=== PATIENT | male | born 1970 | race Caucasian/White ===

== ENCOUNTER 2023-09-11 14:28 | Emergency (ER) | payer SELFPAY ==
[2023-09-11] MEDS ORDERED: NA CHLORIDE 0.9% 1,000 ML ONE (14:48)
[2023-09-11] MEDS ORDERED: TETRACAINE HCL 0.5% 4ML OPTH ONE (14:48)
--- NOTE | 2023-09-11 15:24 | ER ---
Nurse's Notes [facility] Name: Harpreet Mckeon Age: 53 yrs Sex: Male : 1970 Arrival Date: 09/11/2023 Time: 14:28 Bed 10 Private MD: Diagnosis: Injury of conjunctiva and corneal abrasion without foreign body, right eye Presentation: 09/10 14:36 Chief complaint: Patient states: R EYE TEARING/IRRITATION x1 WK, UNK SOURCE. bp Coronavirus screen: At this time, the client does not indicate any symptoms associated with coronavirus-19. Ebola Screen: No symptoms or risks identified at this time. Initial Sepsis Screen: Does the patient meet any 2 criteria? No. Patient's initial sepsis screen is negative. Does the patient have a suspected source of infection? No. Patient's initial sepsis screen is negative. Risk Assessment: Do you want to hurt yourself or someone else? Patient reports no desire to harm self or others. Onset of symptoms is unknown. 14:36 Method Of Arrival: Ambulatory bp 14:36 Acuity: HENRIK 3 bp Triage Assessment: 14:37 General: Appears uncomfortable, Behavior is appropriate for age. Pain: Complains of bp pain in right eye. EENT: Eyes are tearing on right eye Sclera/Cornea are reddened in right eye. Historical: - Allergies: 14:37 No Known Allergies; bp - Home Meds: 14:37 None [Active]; bp - PMHx: 14:37 None; bp - Immunization history:: Adult Immunizations up to date. - Infectious Disease History:: Denies. - Social history:: Smoking status: unknown. Screenin:00 [facility] ED Fall Risk Assessment (Adult) History of falling in the last 3 months, cm10 including since admission No falls in past 3 months (0 pts) Confusion or Disorientation No (0 pts) Intoxicated or Sedated No (0 pts) Impaired Gait No (0 pts) Mobility Assist Device Used No (0 pt) Altered Elimination No (0 pt) Score/Fall Risk Level 0 - 2 = Low Risk Oriented to surroundings, Maintained a safe environment, Hourly rounding (assess needs \T\ fall precautionary measures) done. Abuse screen: Denies threats or abuse. Denies injuries from another. Nutritional screening: No deficits noted. Tuberculosis screening: No symptoms or risk factors identified. Assessment: 15:00 General: Appears in no apparent distress. comfortable, Behavior is calm, cooperative. cm10 Neuro: No deficits noted. Level of Consciousness is awake, alert, obeys commands, Oriented to person, place, time, situation, Appropriate for age. Respiratory: Airway is patent Respiratory effort is even, unlabored, Respiratory pattern is regular, symmetrical. EENT: Eyes are tearing on right eye Reports pain in right eye. 15:24 General: PT awaiting completion of irrigation for discharge.. cm10 Vital Signs: 14:36 BP 138 / 99; Pulse 79; Resp 16; Temp 98; Pulse Ox 97% ; Weight 58.97 kg; Height 5 ft. 8 bp in. ; 14:36 Body Mass Index 19.77 (58.97 kg, 172.72 cm) bp Visual Acuity: 15:38 Left Eye Visual acuity 20/50, ; Right Eye Visual acuity 20/70, ; Both Eyes Visual cm10 acuity 20/40; Without Lenses; ED Course: 14:31 Patient arrived in ED. mr 14:35 Chris Carpenter MD is Attending Physician. sp3 14:37 Triage completed. bp 14:37 Arm band placed on. bp 14:42 Eva Hankins, ALICIA is Primary Nurse. cm10 14:58 Eye irrigation of right eye w/ Grzegorz lens IV tubing with 1 liter normal saline, cm10 Patient tolerated well. 15:00 Patient has correct armband on for positive identification. Placed in gown. Bed in low cm10 position. Call light in reach. Provided Education on: ER process and procedures. 15:00 No provider procedures requiring assistance completed. Patient did not have IV access cm10 during this emergency room visit. 15:22 Harsh Michelle MD is Referral Physician. sp3 Administered Medications: 14:52 Drug: Tetracaine Ophthalmic Drops 0.5 % 3 drops Ophthalmic once Route: Ophthalmic; cm10 Site: right eye; Medication: 15:00 VIS not applicable for this client. cm10 Outcome: 15:23 Discharge ordered by . sp3 15:42 Discharged to home ambulatory, with significant other, cm10 15:42 Condition: good 15:42 Discharge instructions given to patient, Instructed on discharge instructions, follow up and referral plans. medication usage, Demonstrated understanding of instructions, follow-up care, medications, Prescriptions given X 1, 15:42 Patient left the ED. cm10 Signatures: Elizabeth Baptiste, Reg Reg Rodney Stapleton, ALICIA RN bp Chris Carpenter MD MD sp3 Eva Hankins RN RN cm10
--- NOTE | 2023-09-11 15:24 | EDPHYS ---
Physician Documentation [facility] Name: Harpreet Mckeon Age: 53 yrs Sex: Male : 1970 Arrival Date: 09/11/2023 Time: 14:28 Bed 10 Private MD: ED Physician Chris Carpenter HPI: 09/10 14:52 This 53 yrs old Male presents to ER via Ambulatory with complaints of Eye Problem. sp3 14:52 53-year-old male with no past medical history presents to the ED with right eye sp3 redness, drainage for 6 days. Patient thinks that he "got something in his eye at the right smell" and it has been hurting him since then progressively getting worse. He has foreign body sensation in his eye. He denies headache, cloudy vision, decreased vision, neck pain, other focal neurological deficit, chest pain, back pain, shortness of breath, fever, corrective lenses, or any other signs or symptoms on ROS at this time.. Historical: - Allergies: 14:37 No Known Allergies; bp - Home Meds: 14:37 None [Active]; bp - PMHx: 14:37 None; bp - Immunization history:: Adult Immunizations up to date. - Infectious Disease History:: Denies. - Social history:: Smoking status: unknown. ROS: 14:54 Constitutional: Negative for fever, chills, and weight loss, ENT: Negative for injury, sp3 pain, and discharge, Neck: Negative for injury, pain, and swelling, Cardiovascular: Negative for chest pain, palpitations, and edema, Respiratory: Negative for shortness of breath, cough, wheezing, and pleuritic chest pain, Abdomen/GI: Negative for abdominal pain, nausea, vomiting, diarrhea, and constipation, Back: Negative for injury and pain, MS/Extremity: Negative for injury and deformity, Skin: Negative for injury, rash, and discoloration, Neuro: Negative for headache, weakness, numbness, tingling, and seizure, Psych: Negative for depression, anxiety, suicide ideation, homicidal ideation, and hallucinations, Allergy/Immunology: Negative for hives, rash, and allergies, Endocrine: Negative for neck swelling, polydipsia, polyuria, polyphagia, and marked weight changes, 14:54 All other systems are negative, Exam: 14:55 Constitutional: This is a well developed, well nourished patient who is awake, alert, sp3 and in no acute distress. Head/Face: Normocephalic, atraumatic. ENT: Nares patent. No nasal discharge, no septal abnormalities noted. External auditory canals are clear. Oropharynx with no redness, swelling, or masses, exudates, or evidence of obstruction, uvula midline. Mucous membranes moist. Neck: Trachea midline, no thyromegaly or masses palpated, and no cervical lymphadenopathy. Supple, full range of motion without nuchal rigidity, or vertebral point tenderness. No Meningismus. Chest/axilla: Normal chest wall appearance and motion. Nontender with no deformity. No lesions are appreciated. Cardiovascular: Regular rate and rhythm with a normal S1 and S2. No gallops, murmurs, or rubs. Normal PMI, no JVD. No pulse deficits. Respiratory: Lungs have equal breath sounds bilaterally, clear to auscultation and percussion. No rales, rhonchi or wheezes noted. No increased work of breathing, no retractions or nasal flaring. Abdomen/GI: Soft, non-tender, with normal bowel sounds. No distension or tympany. No guarding or rebound. No evidence of tenderness throughout. Back: No spinal tenderness. No costovertebral tenderness. Full range of motion. Skin: Warm, dry with normal turgor. Normal color with no rashes, no lesions, and no evidence of cellulitis. MS/ Extremity: Pulses equal, no cyanosis. Neurovascular intact. Full, normal range of motion. Neuro: Awake and alert, GCS 15, oriented to person, place, time, and situation. Cranial nerves II-XII grossly intact. Motor strength 5/5 in all extremities. Sensory grossly intact. Cerebellar exam normal. Normal gait. 14:55 Eyes: Right eye erythematous with tearing. Anterior chamber clear. Pupils 3 mm and reactive to light. Extraocular movements are intact. Visual acuity pending.. Vital Signs: 14:36 BP 138 / 99; Pulse 79; Resp 16; Temp 98; Pulse Ox 97% ; Weight 58.97 kg; Height 5 ft. 8 bp in. ; 14:36 Body Mass Index 19.77 (58.97 kg, 172.72 cm) bp Visual Acuity: 15:38 Left Eye Visual acuity 20/50, ; Right Eye Visual acuity 20/70, ; Both Eyes Visual cm10 acuity 20/40; Without Lenses; MDM: 14:40 Patient medically screened. sp3 14:59 Data reviewed: vital signs, nurses notes. ED course: Exam under lids demonstrate no sp3 visible foreign body. I believe patient has a corneal abrasion and subsequent irritation. We will clean with Robin lens 1 L normal saline in the right eye after tetracaine application. Subsequent to that patient will go home on antibiotic and steroid with follow-up to local eye career development consultant. Differential diagnosis includes corneal abrasion, iritis, conjunctivitis and/or combination of all 3. Treatment is the same and outlined above.. 09/10 14:48 Order name: [facility] [place]. Order: Robin Lens - 1 L NS right eye; Complete Time: 14:58 sp3 09/10 14:49 Order name: Visual Acuity: After robin lens; Complete Time: 15:42 sp3 Administered Medications: 14:52 Drug: Tetracaine Ophthalmic Drops 0.5 % 3 drops Ophthalmic once Route: Ophthalmic; cm10 Site: right eye; Disposition Summary: 09/11/23 15:23 Discharge Ordered Notes: Location: Home sp3 Condition: Stable sp3 Diagnosis - Injury of conjunctiva and corneal abrasion without foreign body, right eye sp3 Followup: sp3 - With: Private Physician - When: Upon discharge from the Emergency Department - Reason: Continuance of care Followup: sp3 - With: Harsh Michelle MD - When: Upon discharge from the Emergency Department - Reason: Recheck today's complaints Discharge Instructions: - Discharge Summary Sheet sp3 Forms: - Medication Reconciliation Form sp3 - Antibiotic Education sp3 - Prescription Opioid Use sp3 - Patient Portal Instructions sp3 - Leadership Thank You Letter sp3 Prescriptions: - Maxitrol 3.5mg/mL-10,000 unit/mL-0.1 % Ophthalmic drops, suspension - instill 2 drop OPHTHALMIC route every 3 hours; 5 milliliter; Refills: 0, sp3 Product Selection Permitted Signatures: Rodney Ralph, RN RN Chris Carpenter MD MD sp3 Eva Hankins RN RN cm10
[2023-09-11 16:03] VITALS: BP 138/99; TEMP 98; O2SAT 97
== END 2023-09-11 15:42 | disposition home or self-care (01) ==
LOC: ER 14:28
DX: S05.01XA Injury of conjunctiva and corneal abrasion without foreign body, right eye, initial encounter (principal)
CPT/HCPCS: 99284; J7030